=== PATIENT | male | born 1950 | race Two or more races ===

== ENCOUNTER 2017-04-19 07:11 | Outpatient (CLI) | payer OTHER ==
[~2017-04-19 07:11] MED LIST: ALLOPURINOL100 MG PO; TOPROL XL100 M1 PO; VASOTEC2.5 MG
== END 2017-04-19 07:30 | disposition home or self-care (01) ==
LOC: LAB 07:11
DX: N18.3 Chronic kidney disease, stage 3 (moderate) (principal); I10 Essential (primary) hypertension

== ENCOUNTER → 2017-05-27 08:19 | Outpatient (CLI) | payer OTHER | END | disposition home or self-care (01) | LOC: LAB 08:19 | DX: N18.3 Chronic kidney disease, stage 3 (moderate) (principal); I10 Essential (primary) hypertension ==

== ENCOUNTER 2017-07-17 08:23 | Outpatient (CLI) | payer OTHER | END 2017-07-17 08:32 | disposition home or self-care (01) | LOC: LAB 08:23 | DX: N39.0 Urinary tract infection, site not specified (principal); D68.8 Other specified coagulation defects; N18.4 Chronic kidney disease, stage 4 (severe); I10 Essential (primary) hypertension; E11.21 Type 2 diabetes mellitus with diabetic nephropathy; R80.8 Other proteinuria ==

== ENCOUNTER 2017-07-26 09:32 | Inpatient (IN) | payer OTHER ==
[~2017-07-26] VITALS: Ht 172.7 cm; Wt 95.3 kg
[2017-08-02] MEDS ORDERED: FLUCONAZOLE50 MG PO (12:10)
== END 2017-08-02 12:39 | disposition home or self-care (01) | DRG 690 ==
LOC: ER 09:32 → MEDI 15:39
PROC: 3E0F7GC Introduction of Other Therapeutic Substance into Respiratory Tract, Via Natural or Artificial Opening (ICD-10-PCS; principal; 2017-07-26)
PROC: B246ZZZ Ultrasonography of Right and Left Heart (ICD-10-PCS; 2017-07-26)
PROC: BW21ZZZ Computerized Tomography (CT Scan) of Abdomen and Pelvis (ICD-10-PCS; 2017-07-29)
DX: N10 Acute pyelonephritis (principal); B37.49 Other urogenital candidiasis; N17.8 Other acute kidney failure; E86.0 Dehydration; I13.10 Hypertensive heart and chronic kidney disease without heart failure, with stage 1 through stage 4 chronic kidney disease, or unspecified chronic kidney disease; N18.1 Chronic kidney disease, stage 1; D63.1 Anemia in chronic kidney disease; Z90.5 Acquired absence of kidney

== ENCOUNTER 2017-09-04 10:15 | Inpatient (IN) | payer OTHER ==
[~2017-09-04] VITALS: Ht 172.7 cm; Wt 95.3 kg
[~2017-09-04 10:15] MED LIST changes: +FLUCONAZOLE50 MG PO
[2017-09-04] MEDS ORDERED: DOXYCYCLINE HY100 MG (11:10)
[2017-09-04] MEDS ORDERED: ZITHROMAX200 MG (11:10)
[2017-09-04] MEDS ORDERED: ZYRTEC10 M3 (11:11)
[2017-09-04] MEDS ORDERED: FLOVENT DISKUS50 MCG (11:11)
== END 2017-09-16 20:29 | disposition home health service (06) | DRG 177 ==
LOC: ER 10:15 → SURG 20:37 → SEC-K 20:37 → SURG 22:06 → SURH 09-07 18:11 → MEDI 09-11 16:04
PROC: 3E0F7GC Introduction of Other Therapeutic Substance into Respiratory Tract, Via Natural or Artificial Opening (ICD-10-PCS; principal; 2017-09-04)
PROC: BD11YZZ Fluoroscopy of Esophagus using Other Contrast (ICD-10-PCS; 2017-09-05)
PROC: BW21ZZZ Computerized Tomography (CT Scan) of Abdomen and Pelvis (ICD-10-PCS; 2017-09-11)
DX: J69.0 Pneumonitis due to inhalation of food and vomit (principal); A41.9 Sepsis, unspecified organism; N17.8 Other acute kidney failure; B37.49 Other urogenital candidiasis; K56.690 Other partial intestinal obstruction; N13.2 Hydronephrosis with renal and ureteral calculous obstruction; N10 Acute pyelonephritis; B96.29 Other Escherichia coli [E. coli] as the cause of diseases classified elsewhere; I12.9 Hypertensive chronic kidney disease with stage 1 through stage 4 chronic kidney disease, or unspecified chronic kidney disease; N18.1 Chronic kidney disease, stage 1; E86.0 Dehydration; K29.60 Other gastritis without bleeding; K29.80 Duodenitis without bleeding; Z16.12 Extended spectrum beta lactamase (ESBL) resistance; D63.1 Anemia in chronic kidney disease; Z90.5 Acquired absence of kidney; B34.9 Viral infection, unspecified

== ENCOUNTER 2017-11-25 16:14 | Inpatient (IN) | payer OTHER ==
[~2017-11-25] VITALS: Ht 172.7 cm; Wt 93.0 kg
[~2017-11-25 16:14] MED LIST changes: +DOXYCYCLINE HY100 MG; +FLOVENT DISKUS50 MCG; +ZITHROMAX200 MG; +ZYRTEC10 M3
[2017-11-25] MEDS ORDERED: TOPROL XL50 M1 (16:40)
== END 2017-11-29 17:02 | disposition home or self-care (01) | DRG 683 ==
LOC: ER 16:14 → MEDJ 21:36
PROC: 4A033R1 Measurement of Arterial Saturation, Peripheral, Percutaneous Approach (ICD-10-PCS; principal; 2017-11-25)
PROC: BW28ZZZ Computerized Tomography (CT Scan) of Head (ICD-10-PCS; 2017-11-25)
PROC: BT43ZZZ Ultrasonography of Bilateral Kidneys (ICD-10-PCS; 2017-11-27)
DX: N17.8 Other acute kidney failure (principal); B37.49 Other urogenital candidiasis; E87.2 Acidosis; E86.0 Dehydration; I13.10 Hypertensive heart and chronic kidney disease without heart failure, with stage 1 through stage 4 chronic kidney disease, or unspecified chronic kidney disease; N18.1 Chronic kidney disease, stage 1; D63.1 Anemia in chronic kidney disease; Z90.5 Acquired absence of kidney; K29.60 Other gastritis without bleeding; K29.80 Duodenitis without bleeding

== ENCOUNTER 2018-02-05 09:26 | Inpatient (IN) | payer OTHER ==
[~2018-02-05] VITALS: Ht 172.7 cm; Wt 90.3 kg
[~2018-02-05 09:26] MED LIST changes: +TOPROL XL50 M1
[2018-02-05] MEDS ORDERED: [UNRECOGNIZED DRUG - OTHER] (09:43)
== END 2018-02-13 17:16 | disposition home or self-care (01) | DRG 682 ==
LOC: ER 09:26 → SEC-K 17:50 → MEDI 17:50 → MEDJ 18:44 → MEDI 18:56
PROVIDERS: Radiology Vascular & Interventional Radiology
PROC: 4A033R1 Measurement of Arterial Saturation, Peripheral, Percutaneous Approach (ICD-10-PCS; 2018-02-05)
PROC: B543ZZA Ultrasonography of Right Jugular Veins, Guidance (ICD-10-PCS; 2018-02-06)
PROC: 05HM33Z Insertion of Infusion Device into Right Internal Jugular Vein, Percutaneous Approach (ICD-10-PCS; principal; 2018-02-06 17:00)
PROC: 5A1D70Z Performance of Urinary Filtration, Intermittent, Less than 6 Hours Per Day (ICD-10-PCS; 2018-02-07)
DX: I13.11 Hypertensive heart and chronic kidney disease without heart failure, with stage 5 chronic kidney disease, or end stage renal disease (principal); N18.6 End stage renal disease; N17.8 Other acute kidney failure; E87.2 Acidosis; N39.0 Urinary tract infection, site not specified; D63.1 Anemia in chronic kidney disease; B95.1 Streptococcus, group B, as the cause of diseases classified elsewhere; B96.29 Other Escherichia coli [E. coli] as the cause of diseases classified elsewhere; Z90.5 Acquired absence of kidney; E86.0 Dehydration

== ENCOUNTER 2018-06-12 14:08 | Inpatient (IN) | payer OTHER ==
[~2018-06-12] VITALS: Ht 165.1 cm; Wt 220.0 kg
[~2018-06-12 14:08] MED LIST changes: +[UNRECOGNIZED DRUG - OTHER]
[2018-06-12] MEDS ORDERED: TRICOR145 MG (14:17)
--- NOTE | 2018-06-12 14:18 | NUR ---
SE RECIBE PTE EL CUAL REFIERE PRESENTAR TOS SECA, ESCALOFRIOS Y MALESTAR GENERAL DESDE HACE YA UNOS ZUÑIGA.
--- NOTE | 2018-06-12 16:15 | NUR ---
PACIENTE ALERTA Y ORIENTADO X3, CON BUEN PATRON RESPIRATORIO Y SIGNOS VITALES ESTABLES, NO REFIERE DOLOR AL MOMENTO, SE NBA MUESTRAS BAJO MEDIDAS ASEPTICAS CBC, CMP, BLOOD CULTURE X3, MYCOPLASMA IGM & IGG, U/A Y U/C. SE MICHELLE PENDIENTE A CANALIZAR MD DE CONSULTA ORDENO PICC LINE. SE MICHELLE EN CAMA, CON BARANDAS ELEVADAS Y FRENOS COLOCADOS.
== END 2018-06-17 16:41 | disposition home or self-care (01) | DRG 683 ==
LOC: ER 14:08 → MEDJ 16:17
PROVIDERS: ADMIT Specialist
PROC: 8E0ZXY6 Isolation (ICD-10-PCS; 2018-06-12)
PROC: 3E0F7GC Introduction of Other Therapeutic Substance into Respiratory Tract, Via Natural or Artificial Opening (ICD-10-PCS; 2018-06-12)
PROC: 4A12X4Z Monitoring of Cardiac Electrical Activity, External Approach (ICD-10-PCS; 2018-06-12)
PROC: 02HV33Z Insertion of Infusion Device into Superior Vena Cava, Percutaneous Approach (ICD-10-PCS; principal; 2018-06-13)
PROC: 5A1D70Z Performance of Urinary Filtration, Intermittent, Less than 6 Hours Per Day (ICD-10-PCS; 2018-06-14)
DX: N17.8 Other acute kidney failure (principal); I12.0 Hypertensive chronic kidney disease with stage 5 chronic kidney disease or end stage renal disease; J98.11 Atelectasis; B37.41 Candidal cystitis and urethritis; N18.6 End stage renal disease; Z99.2 Dependence on renal dialysis; Z16.12 Extended spectrum beta lactamase (ESBL) resistance; E86.0 Dehydration; E87.8 Other disorders of electrolyte and fluid balance, not elsewhere classified; B96.29 Other Escherichia coli [E. coli] as the cause of diseases classified elsewhere; Z88.8 Allergy status to other drugs, medicaments and biological substances

== ENCOUNTER 2018-10-01 16:51 | Inpatient (IN) | payer OTHER ==
[~2018-10-01] VITALS: Ht 243.8 cm; Wt 5.0 kg
[~2018-10-01 16:51] MED LIST changes: +TRICOR145 MG
[2018-10-01] MEDS ORDERED: PHOSLO667 M1 (17:08)
[2018-10-01] MEDS ORDERED: OMEPRAZOLE10 MG (17:09)
[2018-10-01] MEDS ORDERED: ZANTAC150 M3 (17:09)
== END 2018-10-08 11:49 | disposition home or self-care (01) | DRG 682 ==
LOC: ER 16:51 → MEDJ 18:33
PROVIDERS: ADMIT Specialist
PROC: 8E0ZXY6 Isolation (ICD-10-PCS; principal; 2018-10-04)
DX: I12.0 Hypertensive chronic kidney disease with stage 5 chronic kidney disease or end stage renal disease (principal); N18.6 End stage renal disease; N39.0 Urinary tract infection, site not specified; E87.2 Acidosis; R65.10 Systemic inflammatory response syndrome (SIRS) of non-infectious origin without acute organ dysfunction; Z99.2 Dependence on renal dialysis; I11.9 Hypertensive heart disease without heart failure; R31.0 Gross hematuria; Z88.8 Allergy status to other drugs, medicaments and biological substances; B96.29 Other Escherichia coli [E. coli] as the cause of diseases classified elsewhere; Z16.12 Extended spectrum beta lactamase (ESBL) resistance; R68.83 Chills (without fever); D63.1 Anemia in chronic kidney disease

== ENCOUNTER 2019-12-24 07:23 | Outpatient (CLI) | payer OTHER ==
[~2019-12-24 07:23] MED LIST changes: +OMEPRAZOLE10 MG; +PHOSLO667 M1; +ZANTAC150 M3
== END 2019-12-24 07:28 | disposition home or self-care (01) ==
LOC: TOM 07:23
PROVIDERS: ATTEND Internal Medicine Nephrology
DX: C33 Malignant neoplasm of trachea (principal)
CPT/HCPCS: 70470; 70491; Q9965

== ENCOUNTER 2020-09-20 21:09 | Emergency (ER) | payer OTHER ==
[~2020-09-20] VITALS: Ht 172.7 cm; Wt 93.4 kg
== END 2020-09-21 | disposition home or self-care (01) ==
LOC: ER 21:09
DX: S76.811A Strain of other specified muscles, fascia and tendons at thigh level, right thigh, initial encounter (principal); M25.551 Pain in right hip; W01.198A Fall on same level from slipping, tripping and stumbling with subsequent striking against other object, initial encounter; Y93.01 Activity, walking, marching and hiking; Y92.018 Other place in single-family (private) house as the place of occurrence of the external cause; Y99.8 Other external cause status

== ENCOUNTER 2020-09-28 20:13 | Emergency (ER) | payer OTHER ==
[~2020-09-28] VITALS: Ht 172.7 cm; Wt 93.4 kg
[2020-09-28] MEDS ORDERED: SURFAK240 MG NGT (23:16)
== END 2020-09-28 23:10 | disposition home or self-care (01) ==
LOC: ER 20:13
DX: K59.09 Other constipation (principal); I12.0 Hypertensive chronic kidney disease with stage 5 chronic kidney disease or end stage renal disease; N18.6 End stage renal disease; Z99.2 Dependence on renal dialysis

== ENCOUNTER 2020-11-28 08:22 | Outpatient (CLI) | payer OTHER ==
[~2020-11-28 08:22] MED LIST changes: +SURFAK240 MG NGT
== END 2020-11-28 08:31 | disposition home or self-care (01) ==
LOC: LAB 08:22
PROVIDERS: ATTEND Specialist
DX: E11.65 Type 2 diabetes mellitus with hyperglycemia (principal); Z12.11 Encounter for screening for malignant neoplasm of colon

== ENCOUNTER → 2021-02-10 | Outpatient (CLI) | payer OTHER | END | disposition home or self-care (01) | LOC: NUCLEAR 07:00 | PROVIDERS: ATTEND Internal Medicine Cardiovascular Disease | DX: I25.10 Atherosclerotic heart disease of native coronary artery without angina pectoris (principal) | CPT/HCPCS: 78452; 93017; A9500 ==

== ENCOUNTER 2022-06-29 15:48 | Emergency (ER) | payer OTHER ==
[~2022-06-29] VITALS: Ht 172.7 cm; Wt 98.9 kg
[2022-06-29] MEDS ORDERED: OMEPRAZOLE20 M2 PO (16:14)
[2022-06-29] MEDS ORDERED: CLONAZEPAM0.5 MG PO (21:26)
== END 2022-06-29 21:32 | disposition home or self-care (01) ==
LOC: ER 15:48
DX: R10.84 Generalized abdominal pain (principal); R11.2 Nausea with vomiting, unspecified; Z91.041 Radiographic dye allergy status; R19.7 Diarrhea, unspecified; K57.92 Diverticulitis of intestine, part unspecified, without perforation or abscess without bleeding; N18.6 End stage renal disease; Z99.2 Dependence on renal dialysis; L03.114 Cellulitis of left upper limb; K80.80 Other cholelithiasis without obstruction; K57.30 Diverticulosis of large intestine without perforation or abscess without bleeding

== ENCOUNTER 2022-08-02 11:31 | Emergency (ER) | payer OTHER ==
[~2022-08-02] VITALS: Ht 172.7 cm; Wt 98.9 kg
[~2022-08-02 11:31] MED LIST changes: +CLONAZEPAM0.5 MG PO; +OMEPRAZOLE20 M2 PO
[2022-08-02] MEDS ORDERED: SEVELAMER CARB800 MG PO (11:55)
== END 2022-08-02 15:18 | disposition home or self-care (01) ==
LOC: ER 11:31
DX: K29.70 Gastritis, unspecified, without bleeding (principal); N18.6 End stage renal disease; Z99.2 Dependence on renal dialysis; Z91.041 Radiographic dye allergy status

== ENCOUNTER 2022-08-06 11:49 | Emergency (ER) | payer OTHER ==
[~2022-08-06] VITALS: Ht 172.7 cm; Wt 98.9 kg
[~2022-08-06 11:49] MED LIST changes: +SEVELAMER CARB800 MG PO
[2022-08-06] MEDS ORDERED: CARAFATE1 GM PO (17:45)
== END 2022-08-06 17:59 | disposition home or self-care (01) ==
LOC: ER 11:49
DX: K29.70 Gastritis, unspecified, without bleeding (principal); Z91.041 Radiographic dye allergy status; N18.6 End stage renal disease; Z94.0 Kidney transplant status; Z99.2 Dependence on renal dialysis

== ENCOUNTER 2022-09-25 10:51 | Emergency (ER) | payer OTHER ==
[~2022-09-25] VITALS: Ht 172.7 cm; Wt 98.9 kg
[~2022-09-25 10:51] MED LIST changes: +CARAFATE1 GM PO
[2022-09-25] MEDS ORDERED: TRAMADOL HCL E300 M1 (12:10)
== END 2022-09-25 16:07 | disposition home or self-care (01) ==
LOC: ER 10:51
DX: N18.6 End stage renal disease (principal); Z99.2 Dependence on renal dialysis; D64.9 Anemia, unspecified; E78.5 Hyperlipidemia, unspecified; M54.89 Other dorsalgia; Z91.041 Radiographic dye allergy status

== ENCOUNTER 2022-10-07 20:25 | Emergency (ER) | payer OTHER ==
[~2022-10-07] VITALS: Ht 172.7 cm; Wt 99.3 kg
[~2022-10-07 20:25] MED LIST changes: +TRAMADOL HCL E300 M1
== END 2022-10-08 02:26 | disposition home or self-care (01) ==
LOC: ER 20:25
DX: I12.0 Hypertensive chronic kidney disease with stage 5 chronic kidney disease or end stage renal disease (principal); N18.6 End stage renal disease; Z99.2 Dependence on renal dialysis; Z91.041 Radiographic dye allergy status